=== PATIENT | male | born 1965 | race Hispanic/Latino ===

== ENCOUNTER → 2017-10-26 | Day surgery (SDC) | payer BC ==
--- NOTE | 2017-10-18 12:47 | Diagnostic Imaging Report ---
PROCEDURE: Frontal and lateral views of the chest. COMPARISON: None. INDICATIONS: PRE OPERATIVE CHEST X-RAY FOR UMBILICAL HERNIA REPAIR FINDINGS: Lines/tubes: None. Lungs: The lungs are well inflated and clear. There is no evidence of pneumonia or pulmonary edema. Pleura: There is no pleural effusion or pneumothorax. Heart and mediastinum: The heart and the mediastinum are normal. Bones: No acute bony abnormality. IMPRESSION: 1. No acute cardiopulmonary disease. Dictated by: Tariq Davis M.D. on 10/18/2017 at 12:57 Electronically approved by: Tariq Davis M.D. on 10/18/2017 at 12:57
[2017-10-18 12:55] LABS: BASOPHILS % 0.3 % (0.0-1.0); EOSINOPHILS # (AUTO) 0.1 (0.0-0.4); EOSINOPHILS % 1.7 % (0.0-6.0); HEMATOCRIT 41.3 % (38.2-49.6); LYMPHOCYTES # (AUTO) 1.7 (1.0-3.2); LYMPHOCYTES % 27.2 % (18.0-39.1); MEAN CORPUSCULAR HEMOGLOBIN 31.3 pg (28-32); MEAN CORPUSCULAR HGB CONC 33.9 g/dL (31-35); MEAN CORPUSCULAR VOLUME 92.4 fL (81-99); MONOCYTES # (AUTO) 0.5 (0.2-0.8); MONOCYTES % 8.7 % (4.4-11.3); NEUTROPHILS # (AUTO) 3.8 (2.1-6.9); NEUTROPHILS % 61.9 % (38.7-80.0); PLATELET COUNT 220 x10e3/uL (140-360); RED BLOOD COUNT 4.47 x10e6/uL (4.3-5.7); RED CELL DISTRIBUTION WIDTH 12.8 % (11.7-14.4)
[2017-10-18 13:09] LABS: BLOOD UREA NITROGEN 15 mg/dL (7-26); BUN/CREATININE RATIO 18 (6-25); CALCIUM 9.3 mg/dL (8.4-10.2); CARBON DIOXIDE 23 mmol/L (22-29); CHLORIDE 108 mmol/L (98-107); CREATININE, SERUM 0.82 mg/dL (0.72-1.25); EST GLOMERULAR FILTRATION RATE > 60 ML/MIN (60-); GLUCOSE 92 mg/dL (74-118); SODIUM 141 mmol/L (136-145)
[~2017-10-26] MED LIST: BUPIVACAINE 0.25% 30ML SDV INJ ONE; DEXAMETHASONE SOD PHOS INJ 4 MG/ML VIAL ONE; FENTANYL CITRATE/PF 100MCG/2 ML INJ ONE; GEMFIBROZIL600 MG PO; HYDROCODONE/APAP 7.5MG-325MG 1 EA TAB ONE; LIDOCAINE HCL 2% LOCAL INJ 5 ML SDV VIAL INJ ONE; MIDAZOLAM HCL 2 MG/2 ML VIAL ONE; ONDANSETRON HCL INJ 2 MG/ML VIAL ONE; PROPOFOL IV EMULSION 10 MG/ML 20 ML VIAL ONE; SEVOFLURANE INHAL SOLN 250 ML PEN BTL ONE
--- OUTSIDE RECORDS SUMMARY | 2017-10-26 06:32 | XMS REPORT ---
Author Author [facility] Address Unknown Phone Unavailable Care Team Providers Care Foreign Food Cook Specialty Name Role Phone RADHA MENEZES Unavailable Unavailable MARJ NICOLE Unavailable Unavailable Problems This patient has no known problems. Allergies, Adverse Reactions, Alerts This patient has no known allergies or adverse reactions. Medications This patient has no known medications. Results Test Description Test Time Test Comments Text Results Atomic Results Result Comments CHEST 2 VIEWS [place] [id number] [place] [address] Patient Name: DAYDAY VEGA MR #: [id number] : 1965 Age/Sex: 52/M Req #: [id number] Adm Physician: Ordered by: RADHA MENEZES MD Report #: [id number] Location: OR Room/Bed: Procedure: [id number] DX/CHEST 2 VIEWS Exam Date: Exam Time: REPORT STATUS: Signed PROCEDURE: Frontal and lateral views of the chest. COMPARISON: None. INDICATIONS: PRE OPERATIVE CHEST X-RAY FOR UMBILICAL HERNIA REPAIR FINDINGS: Lines/tubes: None. Lungs: The lungs are well inflated and clear. There is no evidence of pneumonia or pulmonary edema. Pleura: There is no pleural effusion or pneumothorax. Heart and mediastinum: The heart and the mediastinum are normal. Bones: No acute bony abnormality. IMPRESSION: 1. No acute cardiopulmonary disease. Dictated by: Tariq Rawls M.D. on 10/18/2017 at 12:57 Electronically approved by: Tariq Rawls M.D. on 10/18/2017 at 12:57 Dictated By: TARIQ RAWLS MD [id number] Transcribed By: ANA on 10/18/17 1257 COPY TO: RADHA MENEZES MD US GALLBLADDER [place] [address] Patient Name: DAYDAY VEGA MR #: [id number] : 1965 Age/Sex: 52/M Req #: [id number] Adm Physician: Ordered by: RADHA MENEZES MD Report #: [id number] Location: Room/Bed: Procedure: [id number] US/US GALLBLADDER Exam Date: Exam Time: REPORT STATUS: Signed PROCEDURE: US GALLBLADDER COMPARISON: Abdominal ultrasound 04/27/2016. INDICATIONS: GB Polyp TECHNIQUE: Feng-scale and color doppler transverse and longitudinal images of the right upper quadrant of the abdomen were obtained. FINDINGS: Liver: 15.7 cm in right mid-clavicular line. Normal parenchymal echogenicity. No masses. Main portal vein: 1.0 cm in caliber. Hepatopedal flow. Gallbladder: Unchanged 4-5 mm polyp. No shadowing calculus, wall thickening, or pericholecystic fluid. Common Bile Duct: 0.4 cm in caliber. Sonographic Grant's sign: Reported as negative. Right kidney: 12.5 cm. Normal renal cortical echogenicity. No solid masses or hydronephrosis. Pancreas: Poorly visualized secondary to overlying bowel gas. Inferior vena cava: Patent Aorta: Non-aneurysmal Ascites: None in the right upper quadrant of the abdomen. CONCLUSION: Stable 4-5 mm gallbladder polyp. Otherwise unremarkable right upper quadrant ultrasound. Dictated by: Paulo Hamilton M.D. on 06/19/2017 at 11:13 Electronically approved by: Paulo Hamilton M.D. on 06/19/2017 at 11:13 Dictated By : PAULO HAMILTON MD 12 Transcribed By: ANA on 06/19/171112 COPY TO: RADHA MENEZES MD FINGER RIGHT [place] [address] Patient Name: DAYDAY VEGA MR #: [id number] : 1965 Age/Sex: 52/M Req #: [id number] Adm Physician: Ordered by: MARJ NICOLE MD Report #: [id number] Location: ER Room/Bed: Procedure: [id number] DX/FINGER RIGHT Exam Date: 06/07/17 Exam Time: 2330 REPORT STATUS: Signed FINGER RIGHT HISTORY: Third digit of the right hand pain. COMPARISON: None FINDINGS: Bones: No displaced fracture. There is partial flexion deformity of the distal interphalangeal joint of the third digit. Joints: The joint spaces are well-maintained. Soft tissues: The soft tissues appear unremarkable. IMPRESSION: 1. No acute osseous abnormality. 2. Partial flexion deformity of the distal interphalangeal joint of the third digit may be related to extension tendon injury in the appropriate clinical setting. Signed by: Dr. Pop Lima M.D. on 06/08/2017 12:06 AM Dictated By: POP MCDANIEL MD Transcribed By: LUZ on 06/08/175 COPY TO: MARJ NICOLE MD
--- NOTE | 2017-10-26 11:09 | Operative Report ---
DATE OF PROCEDURE: October 26, 2017 PREOPERATIVE DIAGNOSIS: Incarcerated umbilical hernia. POSTOPERATIVE DIAGNOSIS: Incarcerated umbilical hernia. OPERATION PERFORMED: Repair of incarcerated umbilical hernia with Ventralex mesh. ANESTHESIA: General. COMPLICATIONS: None. ESTIMATED BLOOD LOSS: Minimal. DESCRIPTION OF PROCEDURE: With the patient lying in bed in the supine position, under good general anesthesia, the abdomen was prepped with Betadine solution and draped in the usual manner. A semilunar subumbilical incision was made. It was carried down through the subcutaneous tissue down to the fascia. The hernia sac was then circumferentially encircled. The umbilicus was then from the hernia sac, and the hernia sac was opened. Incarcerated within the hernia sac was some omentum, which was reduced back to the intra-abdominal cavity. The excess of the sac was then resected. After this was done, a small Ventralex patch was placed into the intra-abdominal cavity and fixed to the fascia with interrupted sutures of #0 Ethibond. The defect was then closed at the midline, anchoring the mesh as well, using interrupted sutures of #0 Ethibond. Perfect hemostasis was ascertained. All layers were infiltrated on the way out with a solution of 1/4 percent Marcaine. The umbilicus was then tacked back down to the midline fascia with 3-0 Vicryl. The subcutaneous tissue was approximated with 3-0 Vicryl, and the skin was closed with interrupted vertical mattress sutures of 3-0 silk. A dressing was applied. The sponge, lap and needle count was correct. The patient tolerated the procedure well and returned to the recovery room in stable condition. Job#: [id number]
== END | disposition home or self-care (01) ==
LOC: OR 06:29
PROVIDERS: ATTEND Surgery
DX: K42.0 Umbilical hernia with obstruction, without gangrene (principal); Z01.810 Encounter for preprocedural cardiovascular examination; Z01.812 Encounter for preprocedural laboratory examination; Z01.818 Encounter for other preprocedural examination
CPT/HCPCS: 36415; 49587; 71046; 80048; 85025; 93005; C1781; J1100; J2001; J2250; J2405

== ENCOUNTER → 2017-11-24 | Day surgery (SDC) | payer BC ==
[~2017-11-24] MED LIST changes: -BUPIVACAINE 0.25% 30ML SDV INJ ONE; -DEXAMETHASONE SOD PHOS INJ 4 MG/ML VIAL ONE; -HYDROCODONE/APAP 7.5MG-325MG 1 EA TAB ONE; -LIDOCAINE HCL 2% LOCAL INJ 5 ML SDV VIAL INJ ONE; -MIDAZOLAM HCL 2 MG/2 ML VIAL ONE; -ONDANSETRON HCL INJ 2 MG/ML VIAL ONE; -SEVOFLURANE INHAL SOLN 250 ML PEN BTL ONE
== END | disposition home or self-care (01) ==
LOC: OR 11:12
PROVIDERS: ATTEND Surgery
DX: K29.70 Gastritis, unspecified, without bleeding (principal); K21.0 Gastro-esophageal reflux disease with esophagitis
CPT/HCPCS: 43235

== ENCOUNTER 2020-10-18 13:39 | Emergency (ER) | payer BC ==
[~2020-10-18] VITALS: Ht 180.3 cm; Wt 99.1 kg
[~2020-10-18 13:39] MED LIST changes: -FENTANYL CITRATE/PF 100MCG/2 ML INJ ONE; -PROPOFOL IV EMULSION 10 MG/ML 20 ML VIAL ONE
[2020-10-18] MEDS ORDERED: AUGMENTIN 500-1 EACH PO (15:12)
[2020-10-18] MEDS ORDERED: CEFTRIAXONE SOD 1 GM VIAL IM ONE (15:15)
[2020-10-18] MEDS ORDERED: LIDOCAINE HCL 1% LOCAL INJ 20 ML VIAL ONE (15:25)
== END 2020-10-18 15:25 | disposition home or self-care (01) ==
LOC: FSED 14:05
DX: J02.9 Acute pharyngitis, unspecified (principal); J01.90 Acute sinusitis, unspecified; E78.5 Hyperlipidemia, unspecified; E78.00 Pure hypercholesterolemia, unspecified; Z11.52 Encounter for screening for COVID-19
CPT/HCPCS: 83518; 87400; 96372; 99283; J0696; J2001; U0002